=== PATIENT | male | born 1990 | race Caucasian/White ===

== ENCOUNTER 2017-02-02 20:40 | Emergency (ER) | payer OTHER | END 2017-02-02 22:30 | disposition home or self-care (01) | LOC: FER 20:40 | DX: R05 Cough (principal); I10 Essential (primary) hypertension; Z79.899 Other long term (current) drug therapy; Z87.39 Personal history of other diseases of the musculoskeletal system and connective tissue | CPT/HCPCS: 71020; 99283 ==